=== PATIENT | male | born 1990 | race Caucasian/White ===

== ENCOUNTER 2023-09-12 13:57 | Inpatient (IN) | payer BC, SELFPAY ==
[2023-09-12] VITALS (7 sets, daily range): BP systolic 122–153; BP diastolic 76–99; PULSE 66–81; RESP 12–18; TEMP 36.3–36.6; O2SAT 95–99; BMI 37.2
--- NOTE | 2023-09-12 14:05 | NURSING ---
NO OLD EKGS
--- NOTE | 2023-09-12 14:23 | EKG12_ITS ---
Test Reason : CP Blood Pressure : / mmHG Vent. Rate : 078 BPM Atrial Rate : 078 BPM P-R Int : 146 ms QRS Dur : 086 ms QT Int : 338 ms P-R-T Axes : 038 -09 014 degrees QTc Int : 385 ms Normal sinus rhythm with sinus arrhythmia Normal ECG Confirmed by MIGUELINA CHAPARRO, TAWANNA ([id number]), deputy editor in chief TRINA MAYER ([id number]) on 09/19/2023 9:56:59 AM Referred By: Confirmed By:ASNG MCINTYRE MD
--- NOTE | 2023-09-12 14:23 | ED.VIS.CHEST ---
HPI History of Present Illness Chief Complaint: Chest Pain Informant: patient Onset/Context/Timing Onset: Today Narrative Narrative: Patient presents via EMS secondary to chest pain. He states he woke this morning with some burning left upper chest pain that he relates to heartburn. He flew from [place] to [place] this morning and is currently at a hotel room in [place]. He states around 11 AM this morning pain got significantly worse. He got short of breath and diaphoretic and had left arm numbness and tingling. He states pain is improved currently but not completely resolved. He got aspirin at urgent care and was given nitro with EMS. He states the nitro took his pain from a 6 to a 3-1/2. He denies any personal history of cardiac disease or family history. He states he had previously been on medication for reflux but currently only takes Rolaids or Tums when needed. [facility] Medical History (Updated 09/12/23 @ 18:[address] Haley Mccollum MD) Hx of gastroesophageal reflux (GERD) Medical History no medical history Home Medications NK 09/12/23 [History Last Taken Unknown] Allergy/AdvReac Type Severity Reaction Status Date / Time No Known Allergies Allergy Verified 09/12/23 14:34 Surgical History History of wisdom tooth extraction Social History Smoking Status: Current every day smoker tobacco type: e-cigarettes ROS ROS ED Constitutional Constitutional ED: Denies chills or fever(s) Eyes Eyes: Denies change in vision or discharge from eye(s) ENT ENT ED: Denies discharge from eye(s), rhinorrhea or sore throat Cardiovascular Cardiovascular: Reports chest pain; Denies palpitations Respiratory/Chest Respiratory/Chest: Reports dyspnea; Denies cough Gastrointestinal Gastrointestinal: Denies abdominal pain, nausea or vomiting Genitourinary Genitourinary ED: Denies dysuria Musculoskeletal Musculoskeletal: Denies back pain or extremity pain Integumentary Denies Abrasions or rash Neurologic Neurologic: Denies headache(s) or weakness Allergic/Immunologic Allergic/Immunologic ED: Denies lip swelling or urticaria EXAM Physical Exam Const Vital Signs: 09/12/23 13:58 09/12/23 13:59 09/12/23 13:59 Temperature 97.9 F Temperature Source Oral Pulse Rate 76 81 Respiratory Rate 12 Respiratory Effort Normal Blood Pressure 136/86 H Blood Pressure Mean 102 Pulse Ox 97 Oxygen Delivery Method Room Air 09/12/23 14:33 09/12/23 14:58 09/12/23 16:00 Temperature Temperature Source Pulse Rate 68 66 Respiratory Rate 16 16 Respiratory Effort Blood Pressure 125/82 H 122/88 H Blood Pressure Mean 96 99 Pulse Ox 99 98 Oxygen Delivery Method Room Air Room Air Room Air Positive well nourished and well developed General Appearance ED: well developed HEENT Reports moist mucous membranes Eyes EOMs intact bilaterally Chest Wall inspection of chest normal and palpation of chest normal Resp normal respiratory effort and clear to auscultation bilaterally Cardio regular rate and regular rhythm GI soft to palpation and non-tender Extremity normal to inspection Neuro oriented x3 and no sensory deficits noted Motor Exam: strength 5/5 throughout Psych mental status grossly normal Skin no rashes or lesions noted Heart Score History: Moderately Suspicious ECG: Normal Age: </= 45 years Risk Factors: No Risk Factors Troponin: </= Normal Limit Score: 1 MDM MDM MDM Narrative Medical decision making narrative: Patient previously given aspirin and 1 nitro. Patient placed on panel monitor. EKG obtained to evaluate for cardiac arrhythmia/ischemia. IV line initiated. Labwork obtained to evaluate for leukocytosis, anemia, and electrolyte derangement. Chest x-ray obtained to evaluate for acute lung pathology, cardiac size, or mediastinal abnormality. History & Record Review Discussion w/independent historian: EMS personnel and Patient Lab Data Attestation: I reviewed the patient's lab results. Labs: Laboratory Results - last 24 hr 09/12/23 09/12/23 14:07 16:46 WBC 7.6 RBC 5.61 Hgb 15.6 Hct 48.0 MCV 85.6 MCH 27.8 MCHC 32.5 RDW Std Deviation 39.8 RDW Coeff of Naeem 12.8 Plt Count 372 MPV 8.6 Immature Gran % (Auto) 0.300 Neut % (Auto) 66.8 Lymph % (Auto) 26.1 [place] % (Auto) 5.8 Eos % (Auto) 0.7 Baso % (Auto) 0.3 Absolute Neuts (auto) 5.1 Absolute Lymphs (auto) 1.98 Nucleated RBC % 0 D-Dimer Quant (PE/DVT) < 0.27 L Sodium 139 Potassium 3.9 Chloride 106 Carbon Dioxide 29.0 Anion Gap 4 L BUN 16 Creatinine 1.27 Estim Creat Clear Calc 108.48 Est GFR (MDRD) Af Amer 83 Est GFR (MDRD) Non-Af 69 BUN/Creatinine Ratio 12.6 Glucose 89 Calcium 10.5 H Troponin I High Sens 6 6 Radiography Chest X-Ray - ED: 1 View, Read by ED Physician, Normal, Heart, Lungs and Mediastinum Diagnostic Testing: Clinical Impression(s) from Imaging Studies Chest X-Ray 09/12/23 14:30 IMPRESSION: Normal x-ray examination of the chest. Electronically Signed: Osmel Beck MD at 14:44 EST Reading Location ID and State: [facility] / [place] , Service support , EKG Initial EKG: Attestation: I personally reviewed and interpreted this EKG as follows: Interpretation: Sinus Rhythm (Sinus at 78 with sinus arrhythmia. No acute ischemia.) Treatment and Re-Evaluation :: CBC was normal white count 7.6 with a hemoglobin of 15.6. Chemistry studies unremarkable. Troponin is normal at 6 on 2 separate draws. D-dimer is less than 0.27. Chest x-ray per my interpretation reveals no acute abnormalities. Radiology interpretation reviewed and agrees. EKG is sinus at 78. Patient was given a dose of Protonix here. He continues to have some left upper chest pain. He continues to have episodes of lightheadedness and dizziness. I do not see obvious cardiac rhythm abnormalities with this. My primary concern is that he describes having heartburn, however points to the left upper chest and towards the left axilla and describing his area of pain. This has been coming on more frequently recently. He states today's episode was by far the worst he has had. I will speak with hospitalist regarding observation for cycling of enzymes and stress test. Discharge Plan Triage Chief Complaint: Chest Pain ED Provider: Haley Mccollum Dx/Rx/DC Orders Clinical Impression: Chest pain Prescriptions: No Action NK Primary Care Provider: Care Physician,No Primary Referrals: Care Physician,No Primary [Primary Care Provider] - Disposition Disposition: Acute Care [facility]
--- NOTE | 2023-09-12 14:30 | RAD_ITS ---
STUDY: X-RAY CHEST REASON FOR EXAM: Male, 32 years old. Chest pain. TECHNIQUE: Single frontal view of the chest. COMPARISON: None. FINDINGS: The lungs are clear and expanded. There is no demonstrated pleural abnormality. Normal size heart. Normal mediastinum and sheila. Normal visualized pulmonary arteries. Normal visualized aortic arch and descending thoracic aorta. Normal visualized thoracic spine. Normal visualized ribs, clavicles, and shoulders. No abnormality of the visualized soft tissue structures of the upper abdomen. RAD/Chest 1 View (Portable) IMPRESSION: Normal x-ray examination of the chest. Electronically Signed: Osmel Beck MD at 14:44 EST ,
[2023-09-12 14:40] LABS: Absolute Lymphocyte Count 1.98 X10^3/uL (0.83-4.51); Absolute Neutrophil Count 5.1 X10^3/uL (2.0-7.7); Basophil# 0.02 X10^3/uL; Basophil% 0.3 % (0-1); Eosinophil# 0.05 X10^3/uL; Eosinophils% 0.7 % (0-5); Hemoglobin 15.6 g/dL (13.0-16.5); Lymphocyte # 1.98 X10^3/ul (0.83-4.51); Lymphocyte % 26.1 % (19-41); Mean Corp Hgb Conc 32.5 g/dL (32-36); Mean Corpuscular Hgb 27.8 pg (27.0-32.0); Mean Corpuscular Volume 85.6 fL (80-94); Mean Platelet Vol. 8.6 fl (6.2-12.0); Monocyte# 0.44 X10^3/uL; Monocyte% 5.8 % (0-10); NRBC Flagged by Analyzer 0 % (0-5); Neutrophil # 5.09 X10^3/uL (2.7-7.7); Neutrophil % 66.8 % (47-70); Platelet Count 372 K/mm3 (150-450); RBC Distribution Width CV 12.8 % (11.6-14.6); RBC Distribution Width SD 39.8 fl (35.1-43.9); Red Blood Count 5.61 M/mm3 (4.6-6.2); White Blood Count 7.6 K/mm3 (4.4-11.0)
[2023-09-12] MEDS: Pantoprazole Sodium 40 MG in 0.9% Normal Saline (100mL MB+) 100 ML 330 MG IV (14:55)
[2023-09-12 14:56] LABS: Anion Gap 4 (5-15); BUN 16 mg/dL (7-18); BUN/Creat Ratio 12.6 RATIO (10-20); Calcium,Total 10.5 mg/dL (8.5-10.1); Chloride 106 mmol/L (98-107); Creatinine, Serum 1.27 mg/dL (0.70-1.30); EST Glomerular Filtration Rate 69 mL/min (>60); Est Glom Filt Rate - Afr Amer 83 mL/min (>60); Estimated Creatinine Clearance 108.48 ml/min; Glucose 89 mg/dL (74-106); Potassium 3.9 mmol/L (3.5-5.1); Sodium Level 139 mmol/L (136-145); Troponin-I HS (w/2H Reflex) 6 pg/mL (3.0-78.0)
[2023-09-12 15:01] LABS: D-Dimer Quantitative (DVT/PE) < 0.27 FEU/ug/m (0.27-0.49)
[2023-09-12 16:36] LABS: Reflex Troponin-HS? (from REC) Y
[2023-09-12 17:15] LABS: Troponin-I HS 6 pg/mL (3.0-78.0)
--- NOTE | 2023-09-12 19:16 | PCM.HP.STD ---
HPI - General General Date of Admission: 09/12/23 Date of Service: 09/12/23 Chief Complaint: Left-sided chest pain HPI Narrative SHANICE LAMBERT, is a 32 M who presents to the emergency room at [facility] for evaluation of left-sided chest pain which began this morning, patient states he is actually had episodic chest pain since last April but has not mention it to his physician. Patient describes his chest pain as a squeezing sensation, it can be located in his left upper chest area radiating into his left lower neck area and it can also be in his left axilla area as it is presently. Patient denies any nausea or shortness of breath with the discomfort, it is not brought on by exertion, patient does state that he exercises regularly and he does not believe it is associated with activity. As an additional note, patient also complains of periodic lightheadedness as if he is going to faint but he has never had an episode of syncope. This started last year sometime after November and it is not associated with any activity and it is not associated with his chest discomfort. He has not talked to his doctor about this. Workup in the emergency room included labs which were unremarkable including 2 separate troponins, CBC, and a chemistry panel. Patient's EKG showed normal sinus rhythm without evidence of ischemia. Patient's chest x-ray was unremarkable. Patient will be placed in observation status on PCU for chest pain, troponins will be cycled, I have elected to order a CT of the chest without contrast to rule out any chest pathology, patient will undergo a nuclear exercise stress test tomorrow if his enzymes remain negative. Patient's only risk factor appears to be smoking-he smokes approximately half pack a day. [facility] Medical History (Updated 09/12/23 @ 18:[address] Haley Mccollum MD) Hx of gastroesophageal reflux (GERD) Medical History no medical history Home Medications NK 09/12/23 [History Last Taken Unknown] Allergy/AdvReac Type Severity Reaction Status Date / Time No Known Allergies Allergy Verified 09/12/23 14:34 Surgical History History of wisdom tooth extraction Social History Smoking Status: Current every day smoker tobacco type: e-cigarettes ROS Constitutional Constitutional: Denies anorexia, change in weight, chills, fatigue, fever(s), malaise, night sweats or weakness Eyes Eyes: Denies blurry vision, change in vision, discharge from eye(s) or eye pain Cardiovascular Cardiovascular: Reports chest pain and lightheadedness; Denies claudication, dyspnea on exertion, edema, orthopnea or palpitations Respiratory/Chest Respiratory/Chest: Denies cough, dyspnea, excessive phlegm production, hemoptysis, productive cough, shortness of breath at rest, shortness of breath with exertion or wheezing Gastrointestinal Gastrointestinal: Denies abdominal pain, constipation, diarrhea, hematemesis, hematochezia, melena, nausea or vomiting Genitourinary Genitourinary: Denies dysuria, hematuria, urinary frequency, urinary hesitancy, urinary incontinence or urinary urgency Musculoskeletal Musculoskeletal: Denies back pain, joint pain, joint stiffness, joint swelling, myalgias or neck pain Neurologic Neurologic: Denies abnormal gait, abnormal speech, confusion, disequilibrium, dizziness, focal weakness, headache(s), loss of vision, numbness, other visual disturbances, paresthesias, syncope or tingling Psychiatric Psychiatric: Denies anxiety, cognitive impairment, depression, irritability, mood swings or suicidal ideation Endocrine Endocrinology: Denies change in body appearance, cold intolerance, excessive sweating, heat intolerance, polydipsia or polyuria Hematologic/Lymphatic Hematologic/Lymphatic: Denies none, anemia, easy bleeding, easy bruising or lymphadenopathy Allergic/Immunologic Allergic/Immunologic: Denies rhinitis, urticaria, eczemia or asthma Vital Signs Vital Signs Vital Signs: 09/12/23 13:58 09/12/23 13:59 09/12/23 13:59 Temperature 97.9 F Temperature Source Oral Pulse Rate 76 81 Respiratory Rate 12 Respiratory Effort Normal Blood Pressure 136/86 H Blood Pressure Mean 102 Pulse Ox 97 Oxygen Delivery Method Room Air 09/12/23 14:33 09/12/23 14:58 09/12/23 16:00 Temperature Temperature Source Pulse Rate 68 66 Respiratory Rate 16 16 Respiratory Effort Blood Pressure 125/82 H 122/88 H Blood Pressure Mean 96 99 Pulse Ox 99 98 Oxygen Delivery Method Room Air Room Air Room Air 09/12/23 18:00 Temperature Temperature Source Pulse Rate 72 Respiratory Rate 16 Respiratory Effort Blood Pressure 135/89 H Blood Pressure Mean 104 Pulse Ox 97 Oxygen Delivery Method Room Air Weight Weight: 121 kg Body Mass Index (BMI) 37.2 Physical Exam Const alert, oriented x3, no apparent distress and healthy appearing General Appearance: cooperative, well kempt and well developed Orientation / Consciousness: awake, oriented to person, oriented to place and oriented to time HEENT normocephalic, head/scalp atraumatic, hearing grossly normal bilaterally and moist oral mucous membranes Eyes PERRL, EOMs intact bilaterally and conjunctivae normal Neck supple, no JVD, thyroid normal and no carotid bruits General: trachea midline Resp normal respiratory effort, no retractions, no use of accessory muscles and clear to auscultation bilaterally Auscultation: Negative for rales, rhonchi or wheezes Cardio regular rate, regular rhythm, S1 normal heart sound, S2 normal heart sound, no murmurs, no rub and no gallops GI normal to inspection, nondistended, normoactive bowel sounds, soft to palpation, non-tender and non-distended Extremity no clubbing, cyanosis or edema Skin no rashes or lesions noted General Skin Exam: no breakdown Neuro oriented x3, CN's II-XII intact bilaterally, moves all extremities, no focal motor deficits and no sensory deficits noted Sensorium / Orientation: awake, alert, oriented to person, oriented to place and oriented to time Speech: speech normal Psych affect normal Results Lab / Micro Data 09/12/23 14:07 09/12/23 14:07 Labs: Laboratory Results - last 24 hr 09/12/23 14:07: WBC 7.6, RBC 5.61, Hgb 15.6, Hct 48.0, MCV 85.6, MCH 27.8, MCHC 32.5, RDW Std Deviation 39.8, RDW Coeff of Naeem 12.8, Plt Count 372, MPV 8.6, Immature Gran % (Auto) 0.300, Neut % (Auto) 66.8, Lymph % (Auto) 26.1, [place] % (Auto) 5.8, Eos % (Auto) 0.7, Baso % (Auto) 0.3, Absolute Neuts (auto) 5.1, Absolute Lymphs (auto) 1.98, Nucleated RBC % 0, D-Dimer Quant (PE/DVT) < 0.27 L, Sodium 139, Potassium 3.9, Chloride 106, Carbon Dioxide 29.0, Anion Gap 4 L, BUN 16, Creatinine 1.27, Estim Creat Clear Calc 108.48, Est GFR (MDRD) Af Amer 83, Est GFR (MDRD) Non-Af 69, BUN/Creatinine Ratio 12.6, Glucose 89, Calcium 10.5 H, Troponin I High Sens 6 09/12/23 16:46: Troponin I High Sens 6 Imaging Radiology Impression Chest X-Ray 09/12/23 14:30 IMPRESSION: Normal x-ray examination of the chest. Electronically Signed: Osmel Beck MD at 14:44 EST Reading Location ID and State: [address] [place] [address] , Service support , Assessment & Plan Assessment/Plan (1) Chest pain: PLAN: Plan 1. Chest pain-atypical in nature-etiology unclear, patient will be placed into observation status on PCU, cardiac enzymes will be cycled, patient will undergo a nuclear exercise stress test tomorrow if his enzymes remain negative. Again I have elected to order a CT of the chest to rule out any chest pathology. #2 history of reflux symptomology-patient does not take any medications at the present time that are prescribed for reflux, the location of this patient's chest discomfort appears to be atypical for reflux Total clinical time spent by myself addressing the patient's medical issues, reviewing all of his data, and collaborating with patient's care team: 55 minutes Charges/Coding Visit Charges Inpatient E&M: 87915 Init Hosp L2
--- NOTE | 2023-09-12 19:24 | CT_ITS ---
INDICATION: Chest pain EXAMINATION: CT CHEST WITHOUT CONTRAST - CT Chest W/O Contrast Injection TECHNIQUE: Helically acquired images were obtained of the chest. A radiation dose optimization technique was used for this scan. IV Contrast dosage and agent: None. RADIATION DOSAGE (If Supplied By Facility): CTDIvol = ( 18.52 ) mGy, DLP = ( 763.82 ) mGycm COMPARISON: FINDINGS: LUNGS, PLEURA AND LARGE AIRWAYS: No masses, consolidation, or edema. No pleural effusion or thickening. No pneumothorax. THYROID: No thyroid lesions. HEART AND PERICARDIUM: Heart size is normal. No pericardial effusion. CORONARY ARTERIES: Minimal coronary artery calcification VESSELS: Thoracic aorta is not dilated. MEDIASTINUM AND MYRNA: No mediastinal or hilar adenopathy. Esophagus is unremarkable. No hiatal hernia. UPPER ABDOMEN: No acute pathology. BONES: No suspicious lytic or blastic abnormality. CT/Chest without Contrast IMPRESSION: Negative CT chest without contrast. Electronically Signed: Dawood Hernandes DO at 20:34 EST ,
[2023-09-12 21:47] LABS: Troponin-I HS 6 pg/mL (3.0-78.0)
[2023-09-13] VITALS (10 sets, daily range): BP systolic 118–135; BP diastolic 76–90; PULSE 59–72; RESP 10–18; TEMP 36.4–36.6; O2SAT 95–99
--- NOTE | 2023-09-13 05:55 | EKG12_ITS ---
Test Reason : AM EKG Blood Pressure : / mmHG Vent. Rate : 056 BPM Atrial Rate : 056 BPM P-R Int : 150 ms QRS Dur : 088 ms QT Int : 370 ms P-R-T Axes : 050 -01 026 degrees QTc Int : 357 ms Sinus bradycardia Otherwise normal ECG When compared with ECG of 12-SEP-2023 13:57, MANUAL COMPARISON REQUIRED, DATA IS UNCONFIRMED Confirmed by MIGUELINA CHAPARRO, TAWANNA ([id number]), supervising editor trailer RACHEL CHOPRA ([id number]) on 09/19/2023 2:09:36 PM Referred By: CRISTIANO Confirmed By:SANG MCINTYRE MD
--- NOTE | 2023-09-13 08:17 | PCM.PN.HOSP ---
Reason for Visit Reason for Visit: Diagnoses Chest pain, unspecified (09/12/23) Subjective Subjective No further chest pain. States that he was having some left-sided chest pain that was preceded by heartburn. Objective Data Objective Data Vital Signs: Vital Signs Temp Pulse Resp BP Pulse Ox O2 Del Method 36.5 C L 64 17 124/80 H 98 Room Air 09/13/23 08:03 09/13/23 08:03 09/13/23 08:03 09/13/23 08:03 09/13/23 08:03 09/13/23 08:03 Oxygen Delivery Method Room Air Weight: 121.1 kg Body Mass Index (BMI) 37.2 Intake & Output: Intake and Output for Last 24 Hours 09/11/23 09/12/23 09/13/23 23:59 23:59 23:59 Intake Total 110 / 110 Balance 110 / 110 Lab / Micro Data 09/12/23 14:07 09/12/23 14:07 Labs: Laboratory Results - last 24 hr 09/12/23 14:07: WBC 7.6, RBC 5.61, Hgb 15.6, Hct 48.0, MCV 85.6, MCH 27.8, MCHC 32.5, RDW Std Deviation 39.8, RDW Coeff of Naeem 12.8, Plt Count 372, MPV 8.6, Immature Gran % (Auto) 0.300, Neut % (Auto) 66.8, Lymph % (Auto) 26.1, [place] % (Auto) 5.8, Eos % (Auto) 0.7, Baso % (Auto) 0.3, Absolute Neuts (auto) 5.1, Absolute Lymphs (auto) 1.98, Nucleated RBC % 0, D-Dimer Quant (PE/DVT) < 0.27 L, Sodium 139, Potassium 3.9, Chloride 106, Carbon Dioxide 29.0, Anion Gap 4 L, BUN 16, Creatinine 1.27, Estim Creat Clear Calc 108.48, Est GFR (MDRD) Af Amer 83, Est GFR (MDRD) Non-Af 69, BUN/Creatinine Ratio 12.6, Glucose 89, Calcium 10.5 H, Troponin I High Sens 6 09/12/23 16:46: Troponin I High Sens 6 09/12/23 21:23: Troponin I High Sens 6 Radiography Diagnostic Testing: Radiology Impression Chest X-Ray 09/12/23 14:30 IMPRESSION: Normal x-ray examination of the chest. Electronically Signed: Osmel Beck MD at 14:44 EST , Chest CT 09/12/23 19:24 IMPRESSION: Negative CT chest without contrast. Electronically Signed: Dawood Hernandes DO at 20:34 EST , Physical Exam Const alert and no apparent distress HEENT head/scalp atraumatic Resp normal respiratory effort, no retractions, no use of accessory muscles and clear to auscultation bilaterally Cardio regular rate, regular rhythm, S1 normal heart sound and S2 normal heart sound GI normal to inspection, nondistended, normoactive bowel sounds, soft to palpation, non-tender and non-distended Assessment & Plan Assessment/Plan (1) Chest pain: PLAN: Plan Atypical chest pain. Stress test performed and results pending. Suspect more likely esophageal spasm with patient's known history of reflux. Patient has had the symptoms before but not as severe as it was this episode. Troponin series are negative. If a stress test is negative the patient be discharged and will continue with PPI upon discharge. Charges/Coding Visit Charges Inpatient E&M: 07358 Subs Hosp L2
--- NOTE | 2023-09-13 14:10 | CASEMGMT ---
Social Work Per chart review, patient has not completed advance directives and is not interested in further information at this time. Ines Yañez HARDBOARD PANEL PRINTER, CLINICAL TRIALS SPECIALIST
--- NOTE | 2023-09-13 14:19 | STRESSREP ---
Stress Test Report Date: 09/13/2023 Procedure: Exercise tolerance test/imaging study Indications: Chest pain Consent: Per the patient Procedure: The patient exercised on a Dax protocol for 10 minutes and 27 seconds achieving a peak heart rate of 164 bpm (88% predicted maximal heart rate) with a peak blood pressure 150/78 mmHg and a peak MET capacity of 13.4 METs. The baseline ECG demonstrated normal sinus rhythm. The peak exercise ECG demonstrated [Sinus tachycardia with upsloping ST depressions in the inferior and lateral leads. There was also peaked T waves in the anterior leads during peak exercise and early recovery]. EKG during recovery revealed return of ST segments to baseline [There were no cardiac dysrhythmias pretest, during exercise, or recovery]. The functional capacity was considered normal for age. There was [no complaint of chest discomfort during exercise or recovery]. The examination was discontinued secondary to [achieving target heart rate]. Impression: 1. Technically adequate (percent predicted maximal heart rate greater than 85%) exercise tolerance test 2. Stress test is positive for exercise-induced EKG changes of ischemia 3. The test test is negative for exercise-induced chest pain 4. Functional capacity is normal for age 5. Nuclear images pending Myocardial perfusion imaging study: Technique: The patient was injected with 14.8 mCi of technetium 99m Cardiolite and subsequently rest SPECT Cardiolite nuclear imaging was obtained in the horizontal long, vertical long, and short axis views. The patient exercised on a Dax protocol. Please see above for details. The patient was injected with 44.9 mCi of technetium 99m Cardiolite and subsequently stress SPECT Cardiolite nuclear imaging was obtained in the horizontal long, vertical long, and short axis views. A gated Cardiolite study at peak stress was obtained. Interpretation: Rest and stress SPECT Cardiolite nuclear imaging status post realignment, normalization, and attenuation correction, demonstrates no evidence of significant ischemia or infarction. The gated Cardiolite study demonstrates no significant regional wall motion abnormalities. The reported LVEF is 60%. Impression: 1. There is no evidence of significant ischemia or infarction. 2. The gated Cardiolite study reports an LVEF of 60%. This note was generated with [employer] software. It may contain incorrect words, spelling, and punctuation that were not noted in checking the note before signing.
--- NOTE | 2023-09-13 14:46 | DCINST_ITS ---
Discharge Instructions Diet Discharge Diet: No restrictions Follow Up Care Test Results: Test results from this visit will be discussed in further detail at your follow- up appointment, if applicable. Discharge Plan Admission Admit Date/Time: 09/12/23 19:22 Primary Reason for Your Visit: chest pain Attending Provider: Arnav Dotson Primary Care Provider: Leonel Khan,No Primary Consulting Providers: Tonio Lemos; Efrain Dickinson Discharge Orders/Prescriptions Prescriptions: Continued NK Referrals / Follow Up: Care Physician,No Primary [Primary Care Provider] - Disposition Disposition (needs filled in before D/C Order can be placed): Home, Self Care
--- NOTE | 2023-09-13 14:55 | PCM.CONS.C ---
Assessment & Plan Assessment/Plan (1) Chest pain: QUALIFIERS: Chest pain type: unspecified Qualified Code(s): R07.9 - Chest pain, unspecified PLAN: Patient had some concerning EKG changes on stress testing. Treatment options were discussed with the patient in detail. We will proceed with coronary angiography. Patient understands the risks and benefits and is willing to proceed. HPI Consult Data Date of Consult: 09/13/23 HPI Narrative Reason for Consultation: Chest pain, abnormal stress test HPI Narrative: SHANICE LAMBERT, is a 32 M who presents with left-sided chest pain. Patient's cardiac enzymes were negative and chest pain had resolved. He underwent stress testing today which revealed hyperacute T waves at peak exercise and early recovery. [facility] Medical History (Updated 09/13/23 @ 14:[address] Efrain Dickinson MD) Hx of gastroesophageal reflux (GERD) Medical History no medical history Home Medications NK 09/12/23 [History Last Taken Unknown] Allergy/AdvReac Type Severity Reaction Status Date / Time No Known Allergies Allergy Verified 09/12/23 14:34 Surgical History History of wisdom tooth extraction Social History Smoking Status: Current every day smoker tobacco type: e-cigarettes Physical Exam Const alert and no apparent distress HEENT normocephalic Eyes no scleral icterus Resp normal respiratory effort Cardio regular rate and regular rhythm Risk Stratification Risk Stratification Applicable: No Charges/Coding Visit Charges Inpatient E&M: 37800 Init Hosp L2 Objective Data Vital Signs: Vital Signs Temp Pulse Resp BP Pulse Ox O2 Del Method 97.7 F L 64 17 124/80 H 98 Room Air 09/13/23 08:03 09/13/23 08:03 09/13/23 08:03 09/13/23 08:03 09/13/23 08:03 09/13/23 10:00 Oxygen Delivery Method Room Air Weight: 266 lb 15.677 oz Body Mass Index (BMI) 37.2 Intake & Output: Intake and Output for Last 24 Hours 09/11/23 09/12/23 09/13/23 23:59 23:59 23:59 Intake Total 110 / 110 Balance 110 / 110 Lab / Micro Data 09/12/23 14:07 09/12/23 14:07 Labs: Laboratory Results - last 24 hr 09/12/23 14:07: D-Dimer Quant (PE/DVT) < 0.27 L, Sodium 139, Potassium 3.9, Chloride 106, Carbon Dioxide 29.0, Anion Gap 4 L, BUN 16, Creatinine 1.27, Estim Creat Clear Calc 108.48, Est GFR (MDRD) Af Amer 83, Est GFR (MDRD) Non-Af 69, BUN/Creatinine Ratio 12.6, Glucose 89, Calcium 10.5 H, Troponin I High Sens 6 09/12/23 16:46: Troponin I High Sens 6 09/12/23 21:23: Troponin I High Sens 6 Cardiology Labs/Tests 09/12/23 14:07: D-Dimer Quant (PE/DVT) < 0.27 L, Sodium 139, Potassium 3.9, Chloride 106, Carbon Dioxide 29.0, Anion Gap 4 L, BUN 16, Creatinine 1.27, Est GFR (MDRD) Af Amer 83, Est GFR (MDRD) Non-Af 69, BUN/Creatinine Ratio 12.6, Glucose 89, Calcium 10.5 H Rhythm: EKG: ECHO: Stress Test: Cardiac Cath: PCI: CT Surgery: Holter monitor: EPS: PPM: CXR: Chest CT Scan: Radiography Diagnostic Testing: Radiology Impression Chest CT 09/12/23 19:24 IMPRESSION: Negative CT chest without contrast. Electronically Signed: Dawood Hernandes DO at 20:34 EST Reading Location ID and State: [facility] / [place] Tel [phone], Service support ,
--- NOTE | 2023-09-13 16:27 | PCM.DC.SUM ---
Providers Date of Admission: 09/13/23 Primary Care Physician: Katerina Primary Care Phys Consultations 09/13/23 14:45 Consult: Cardiology Routine Consulting Provider: Efrain Dickinson Reason for Consult: Chest pain EMERGENT Consult: No MD Notified: Yes Date Notified: 09/13/23 Time Notified: 14:45 Method of Notification: Verbal Reason For Visit: CHEST PAIN Diagnosis Discharge Diagnosis (1) Chest pain: Status: Acute Code(s): R07.9 - Chest pain, unspecified Qualifiers: Chest pain type: unspecified Qualified Code(s): R07.9 - Chest pain, unspecified Plan Atypical chest pain. Stress test performed and results pending. Suspect more likely esophageal spasm with patient's known history of reflux. Patient has had the symptoms before but not as severe as it was this episode. Troponin series are negative. If a stress test is negative the patient be discharged and will continue with PPI upon discharge. Medications at Discharge Home Medications omeprazole 20 mg capsule,delayed release 20 mg PO DAILY #30 caps 09/13/23 Hospital Course Operations None Procedures Cardiac catheterization and Stress test Summary of Care Provided Hospital Course: Patient presents with chest pain. Troponins were negative, stress test was equivocal as the patient underwent left heart catheterization. Left heart catheterization was unremarkable. Is likely his symptoms were due to GI patient recommend take omeprazole [id number] daily. Patient advised to follow-up with his primary care doctor for routine monitoring. Patient will be discharged home. Patient is from the [facility]. Weight / BMI Weight Weight: 121.1 kg Body Mass Index (BMI) 37.2 ABG / Lab / Microbiology Data 09/12/23 14:07 09/12/23 14:07 Laboratory: Laboratory Results - last 24 hr 09/12/23 16:46: Troponin I High Sens 6 09/12/23 21:23: Troponin I High Sens 6 Radiography Diagnostic Testing: Radiology Impression Chest CT 09/12/23 19:24 IMPRESSION: Negative CT chest without contrast. Electronically Signed: Dawood Hernandes DO at 20:34 EST Reading Location ID and State: [facility] / [place] Tel [phone], Service support , D/C Instructions Discharge Diet: No restrictions Meaningful Use Info Meaningful Use Diagnoses (Choose all that apply): None applicable Discharge Plan Admission Admit Date/Time: 09/13/23 15:30 Primary Reason for Your Visit: chest pain Attending Provider: Arnav Dotson Primary Care Provider: Care Physician,No Primary Consulting Providers: Tonio Lemos; Efrain Dickinson Instructions Additional Instructions / Restrictions: You presented here with chest pain. Your cardiac catheterization was abnormal. So your chest pain is not due to to any cardiac reason. Could be related with reflux and possible esophageal spasm. I would recommend taking [id number] omeprazole (also known as Prilosec) daily. Please follow up with your primary care physician at your earliest convenience. Discharge Orders/Prescriptions Prescriptions: New omeprazole 20 mg capsule,delayed release(DR/EC) 20 mg PO DAILY Qty: 30 0RF Referrals / Follow Up: Care Physician,No Primary [Primary Care Provider] - Disposition Disposition (needs filled in before D/C Order can be placed): Home, Self Care Charges/Coding Visit Charges Inpatient E&M: 42343 Disch Hosp
--- NOTE | 2023-09-15 15:43 | CL.D_ITS ---
Patient Name: SHANICE LAMBERT Study Date: 09/13/2023 Performing: Morales Dickinson MD Ht: 71 inches 180.34 cm : 1990 Wt: 267.3 lbs 121.1 kg Age: 32 Gender: male BSA: 2.38 PROCEDURE(S) PERFORMED DC01-(63394)LHC/COR/LV CLINICAL PROFILE AND INDICATIONS Indications: ACS <= 24 hrs Heart Failure: None Stress/Imaging Date: 09/13/23Stress Test with SPECT MPI: Positive Intermediate Risk CONCLUSIONS No significant obstructive coronary artery disease. Preserved LV systolic function. Ejection fraction is 60%.No significant aortic stenosis or mitral regurgitation RECOMMENDATIONS DESCRIPTION OF PROCEDURE The patient arrived to the procedure lab. The risks and benefits of the procedure as well as a full description of our services here and current unavailability of surgical backup were fully explained to the patient and/or their significant other prior to the catheterization. The Timeout was completed, verifying the correct patient and procedure. The patient's procedural site was prepped and draped in the usual fashion. Local anesthetic was given subcutaneously to right radial region with Lidocaine 2%. Using a modified Seldinger technique, arterial access was obtained via the right radial artery, a 6Fr sheath was inserted. Left Coronary Artery selective angiography was performed in multiple views using a 5 Fr. JL3.5 catheter. Left Ventriculography was performed in RUEDA projection using a 5 Fr. JR4. LV to AO pullback pressures were then recorded. Right Coronary Artery selective angiography was then performed in multiple views using a 5 Fr. JR 4 catheter.The arterial sheath was pulled and a TR Band was applied for hemostasis CORONARY ANGIOGRAPHY DOMINANCE: Right Dominant LEFT MAIN: Mild luminal irregularities LEFT ANTERIOR DESCENDING ARTERY: Mild luminal irregularities CIRCUMFLEX ARTERY: Mild luminal irregularities RIGHT CORONARY ARTERY: No significant disease noted COMPLICATIONS No Complications PROCEDURE MEDICATIONS Fentanyl 50 mcg IV Versed 1 mg IV Oxygen: 2 L/min via nasal cannula Aspirin (325mg) 1 Tabs PO @ 09/13/2023 15:15:25 Heparin given IA 09/13/2023 15:42:05 Verapamil 2.5mg, Ntg 100mcgs, 3000 units of Heparin given IA 09/13/2023 15:42:05 SUMMARY OF HEMODYNAMIC DATA Time AIR REST ECG 15:23:08 AO 103/83 (95) SA 15:46:46 AO 113/91 (104) 15:48:05 LV 113/0, 3 15:50:32 LV 134/-8, 4 15:50:51 LV 135/-8, 5 15:51:44 LVp 137/-2, 10 15:51:56 AOp 119/76 (96) 15:52:03 Signed By Morales Dickinson MD On 09/15/2023 15:43:16 Morales Dickinson MD
== END 2023-09-13 19:03 | disposition home or self-care (01) | DRG 287 ==
LOC: ED 18:20 → PCU 19:28
PROVIDERS: Admitting Provider Internal Medicine; Emergency Provider Emergency Medicine
DX: R07.89 Other chest pain (principal); F17.210 Nicotine dependence, cigarettes, uncomplicated; K21.9 Gastro-esophageal reflux disease without esophagitis; R94.39 Abnormal result of other cardiovascular function study
CPT/HCPCS: 36415; 71045; 71250; 78452; 80048; 84484; 85025; 85379; 93005; 93017; 93458; 99152; 99153; 99285; A9500; J7040; A4216; C1769; C1894